=== PATIENT | male | born 1990 | race Two or more races ===

== ENCOUNTER 2016-12-21 05:27 | Emergency (ER) | payer OTHER ==
[~2016-12-21] VITALS: Ht 188 cm; Wt 118.8 kg
[2016-12-21] MEDS ORDERED: HYDROcodone-ACET 5/325MG TAB PO ONE (07:30)
[2016-12-21 08:10] VITALS: BP 136/52
== END 2016-12-21 10:10 | disposition home or self-care (01) ==
LOC: ER 05:29
DX: S33.5XXA Sprain of ligaments of lumbar spine, initial encounter (principal); W19.XXXA Unspecified fall, initial encounter; Y93.89 Activity, other specified; Y99.8 Other external cause status; Y92.89 Other specified places as the place of occurrence of the external cause
CPT/HCPCS: 72100